=== PATIENT | female | born 1945 | race Caucasian/White ===

== ENCOUNTER 2021-06-29 10:42 | Emergency (ER) | payer MEDICARE, OTHER ==
[~2021-06-29] VITALS: Ht 162.6 cm; Wt 79.4 kg
[~2021-06-29 10:42] MED LIST: ATEN-169 PO; LEVO75TA57 PO; LISI20TA28 PO; METF500T PO; WEL625T PO; ZOC40T PO; [UNRECOGNIZED DRUG - OTHER] PO
[2021-06-29 10:47] VITALS: BP 193/83
== END 2021-06-29 13:18 | disposition home or self-care (01) ==
LOC: ER 10:42
DX: R68.84 Jaw pain (principal); E78.00 Pure hypercholesterolemia, unspecified; I10 Essential (primary) hypertension; E11.9 Type 2 diabetes mellitus without complications; Z88.0 Allergy status to penicillin; Z88.2 Allergy status to sulfonamides; Z88.8 Allergy status to other drugs, medicaments and biological substances; Z79.899 Other long term (current) drug therapy
CPT/HCPCS: 70486; 99284